=== PATIENT | female | born 1965 | race Two or more races ===

== ENCOUNTER 2020-12-29 10:21 | Inpatient (IN) | payer OTHER ==
[~2020-12-29] VITALS: Wt 5.0 kg
[2020-12-29] MEDS ORDERED: CANDESARTAN CILE8 MG PO (11:01)
[2021-01-01] MEDS ORDERED: PRILOSEC OTC20 MG PO (10:37)
[2021-01-01] MEDS ORDERED: PERCOCET 5-3251 EACH PO (10:37)
== END 2021-01-01 12:52 | disposition home or self-care (01) | DRG 340 ==
LOC: ER 10:21 → SEC-K 15:33 → SURG-SUITE 15:33
PROVIDERS: ADMIT Surgery; ATTEND Surgery
PROC: 3E0F7SF Introduction of Other Gas into Respiratory Tract, Via Natural or Artificial Opening (ICD-10-PCS; 2020-12-29)
PROC: 0DTJ4ZZ Resection of Appendix, Percutaneous Endoscopic Approach (ICD-10-PCS; principal; 2020-12-29 17:15)
DX: K35.33 Acute appendicitis with perforation, localized peritonitis, and gangrene, with abscess (principal); I10 Essential (primary) hypertension; R10.31 Right lower quadrant pain; Z20.822 Contact with and (suspected) exposure to COVID-19